=== PATIENT | male | born 1975 | race Caucasian/White ===

== ENCOUNTER 2021-01-25 23:46 | Emergency (ER) | payer MEDICAID ==
[~2021-01-25] VITALS: Ht 177.8 cm; Wt 87.3 kg
[2021-01-26] MEDS ORDERED: ketoconazole 2% cream 15gm TP ONE (01:55)
[2021-01-26] MEDS ORDERED: sulfamethoxazole/trimethoprim DS (800/160mg) tablet PO ONE (01:55)
[2021-01-26] MEDS ORDERED: ondansetron 4mg rapidly disintigrating tab PO ONE (01:55)
[2021-01-26] MEDS ORDERED: fluconazole 100mg tablet PO ONE (01:55)
[2021-01-26] MEDS ORDERED: CICL90CR3 TOP (03:46)
[2021-01-26] MEDS ORDERED: CEPH250T PO (03:46)
[2021-01-26 03:57] VITALS: BP 123/92
== END 2021-01-26 03:58 | disposition home or self-care (01) ==
LOC: ER 23:46
DX: L03.116 Cellulitis of left lower limb (principal); L03.115 Cellulitis of right lower limb; B35.3 Tinea pedis; Z88.6 Allergy status to analgesic agent; Z88.8 Allergy status to other drugs, medicaments and biological substances; Z79.2 Long term (current) use of antibiotics; Z79.899 Other long term (current) drug therapy
CPT/HCPCS: 93971; 99284

== ENCOUNTER 2021-07-20 00:01 | Emergency (ER) | payer MEDICAID ==
[~2021-07-20] VITALS: Ht 177.8 cm; Wt 90.1 kg
[~2021-07-20 00:01] MED LIST: CICL90CR3 TOP
[2021-07-20] MEDS ORDERED: cephalexin 500mg capsule PO ONE (00:40)
[2021-07-20] MEDS ORDERED: CEPH-585 PO (00:43)
[2021-07-20] MEDS ORDERED: CLOT15CR10 TOP (00:43)
[2021-07-20 02:01] VITALS: BP 130/80
== END 2021-07-20 02:03 | disposition home or self-care (01) ==
LOC: ER 00:01
DX: L03.115 Cellulitis of right lower limb (principal); I50.9 Heart failure, unspecified; Z88.6 Allergy status to analgesic agent; Z88.8 Allergy status to other drugs, medicaments and biological substances; Z79.2 Long term (current) use of antibiotics; Z79.899 Other long term (current) drug therapy
CPT/HCPCS: 93971; 99284

== ENCOUNTER 2021-07-29 17:01 | Emergency (ER) | payer MEDICAID ==
[~2021-07-29] VITALS: Ht 177.8 cm; Wt 90.9 kg
[~2021-07-29 17:01] MED LIST changes: +CEPH-585 PO; +CLOT15CR10 TOP
[2021-07-29] MEDS ORDERED: ondansetron 4mg rapidly disintigrating tab PO ONE (18:45)
[2021-07-29] MEDS ORDERED: CEPH250T PO (18:45)
[2021-07-29] MEDS ORDERED: morphine 4 MG/ML inj SYRINge IM ONE (18:45)
[2021-07-29] MEDS ORDERED: CLOT15CR10 TOP (18:45)
[2021-07-29 19:20] VITALS: BP 150/70
== END 2021-07-29 19:22 | disposition home or self-care (01) ==
LOC: ER 17:01
DX: L03.116 Cellulitis of left lower limb (principal); B35.3 Tinea pedis; I50.9 Heart failure, unspecified; Z88.6 Allergy status to analgesic agent; Z88.5 Allergy status to narcotic agent; Z79.899 Other long term (current) drug therapy
CPT/HCPCS: 96372; 99284; J2270

== ENCOUNTER 2022-07-04 18:28 | Emergency (ER) | payer MEDICAID ==
[~2022-07-04] VITALS: Ht 177.8 cm; Wt 102.0 kg
[2022-07-04 19:23] VITALS: BP 149/91
== END 2022-07-05 03:00 | disposition left against medical advice (07) ==
LOC: ER 18:29
DX: T14.8XXA Other injury of unspecified body region, initial encounter (principal); Z53.21 Procedure and treatment not carried out due to patient leaving prior to being seen by health care provider; W57.XXXA Bitten or stung by nonvenomous insect and other nonvenomous arthropods, initial encounter; Y93.89 Activity, other specified; Y92.89 Other specified places as the place of occurrence of the external cause; Y99.8 Other external cause status

== ENCOUNTER 2025-06-23 19:35 | Emergency (ER) | payer MEDICAID ==
[~2025-06-23] VITALS: Ht 177.8 cm; Wt 90.9 kg
[~2025-06-23 19:35] MED LIST changes: -CEPH-585 PO
[2025-06-23 19:48] VITALS: TEMP 96.8
--- NOTE | 2025-06-23 19:48 | ELECTROCARDIOGRAPH REPORT ---
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
--- NOTE | 2025-06-23 20:04 | RADIOLOGY REPORT ---
CLINICAL HISTORY: CP TECHNIQUE: Single view of the chest was obtained. COMPARISON: None FINDINGS: The heart size and pulmonary vasculature are normal. The lungs are clear. IMPRESSION: NO ACUTE CARDIOPULMONARY PROCESS.
[2025-06-23 20:23] LABS: CREATININE 1.14 MG/DL (0.60-1.10); PRO BRAIN NATRIURETIC PEPTIDE < 30 PG/ML (0-125); TOTAL CARBON DIOXIDE 27.9 MMOL/L (24-32); eCRCL 80 ML/MIN; eGFR 68 ML/MIN
[2025-06-23 20:25] LABS: MEAN PLATELET VOLUME 9.8 FL (7.4-10.4); RED CELL DISTRIBUTION WIDTH 14.4 % (11.5-14.5)
--- NOTE | 2025-06-23 22:40 | Physician Documentation ---
History of Present Illness ~ Chief Complaint: Chest Pain Stated Complaint: CHEST PAIN Time Seen by MD: 22:38 Primary Medical Doctor: NONE HPI Patient presents to the emergency room for evaluation of central chest pain that has been going on for the past week. No relieving or exacerbating factors. He does smoke and has family history significant for heart disease but denies any hypertension cholesterol , or diabetes. Endorses shortness of breath as well. Medication Reconciliation Allergies: Coded Allergies: acetaminophen (Verified Allergy, Severe, throat swelling, 06/23/25) oxycodone (Verified Allergy, Severe, throat swelling, 06/23/25) Scheduled Ciclopirox Olamine (Ciclopirox), 1 APPLIC TOP Q12H Clotrimazole (Clotrimazole), 1 APPLIC TOP Q8H Clotrimazole (Clotrimazole), 1 APPLIC TOP Q8H Past Medical History Past Medical History: Congestive Heart Failure, Cellulitis Past Surgical History: noncontributory Alcohol Use: None Drug Use: none Lives In: Home Review of Systems ROS All review of systems negative except as per HPI Physical Exam Vital Signs: Temperature: 96.8, Source: Temporal, Heart Rate: 94, Respiratory Rate: 15, BP: 142/98, Pulse Oximetry: 99, Weight: 90.900 Physical Exam General: Patient is awake, alert, oriented x4 in no acute distress Head: Normocephalic and atraumatic. Eyes: Conjunctival normal. EOMI. PERRL. ENT: Mucous membranes moist. Neck: Supple, trachea is midline. Chest: Clear to auscultation bilaterally without rales, rhonchi, or wheezes. There is no accessory muscle use or retractions. Cardiac: RRR without murmurs, gallops, or rubs. Extremities: Normal strength. Normal range of motion. No deformities or edema. No calf tenderness to palpation Progress Results/Orders Results/Orders Orders - ROOSEVELT VALERIO MD Chest,Single View (06/23/25 19:56) Monitor (06/23/25 19:47) Saline Lock (06/23/25 19:47) Oxygen (06/23/25 19:47) Hs Troponin I W Calculations (06/23/25 22:47) Cta Chest Pe (06/23/25 23:40) Completed Orders - ROOSEVELT VALERIO MD Chest,Single View (06/23/25 19:56) Cbc/Diff (06/23/25 19:47) BMP (06/23/25 19:47) PBNP (06/23/25 19:47) Electrocardiogram (06/23/25 19:47) Hs Troponin I W Calculations (06/23/25 19:47) Hs Troponin I W Calculations (06/23/25 21:47) D-Dimer (06/23/25 22:44) Cta Chest Pe (06/23/25 23:40) Iohexol 350mg/Ml 100ml (Omnipaque 350mg/ (06/23/25 23:04) Vital Signs 06/23/25 06/23/25 06/23/25 06/23/25 19:48 22:50 22:50 23:50 Temp 96.8 Pulse 94 91 89 Resp 15 16 16 B/P (MAP) 142/98 144/98 (113) 105/89 (94) Pulse Ox 99 97 99 O2 Flow Rate 0 0 06/24/25 01:12 Pulse 82 Resp 16 B/P (MAP) 138/81 (100) Pulse Ox 98 O2 Flow Rate 0 Laboratory Tests Test 06/23/25 19:55 06/23/25 21:54 White Blood Count 9.6 Red Blood Count 5.58 Hemoglobin 16.2 Hematocrit 49.6 Mean Corpuscular Volume 88.9 Mean Corpuscular Hemoglobin 29.0 Mean Corpuscular Hemoglobin Concent 32.6 L Red Cell Distribution Width 14.4 Platelet Count 184 Mean Platelet Volume 9.8 Neutrophils (%) (Auto) 61.4 Lymphocytes (%) (Auto) 26.8 Monocytes (%) (Auto) 8.1 Eosinophils (%) (Auto) 3.4 Basophils (%) (Auto) 0.3 Neutrophils # (Auto) 5.9 Lymphocytes # (Auto) 2.6 Monocytes # (Auto) 0.8 Eosinophils # (Auto) 0.3 Basophils # (Auto) 0.0 CBC Comment D-Dimer 1.07 H D-Dimer Comment Sodium Level 140 Potassium Level 4.7 Chloride Level 103 Carbon Dioxide Level 27.9 Anion Gap 9 Blood Urea Nitrogen 19 H Creatinine 1.14 H Estimated GFR/1.73 m2 68 BUN/Creatinine Ratio 16.7 Glucose Level 96 Calcium Level 8.9 Troponin I High Sensitivity 8 8 Pro-B-Type Natriuretic Peptide < 30 Albumin 3.8 Chemistry Comments Troponin I High Sens Percent Delta 0 Troponin I Hi Sens Absolute Change 0 EKG/XRAY/CT/US/VASC/MRI EKG : Additional Comment EKG interpreted by myself shows time of 1940, rate 94, sinus rhythm, normal axis, no ST changes Chest X-Ray : Additional Comments Exam: CHEST,SINGLE VIEW CLINICAL HISTORY: CP TECHNIQUE: Single view of the chest was obtained. COMPARISON: None FINDINGS: The heart size and pulmonary vasculature are normal. The lungs are clear. IMPRESSION: NO ACUTE CARDIOPULMONARY PROCESS. Medical Decision Making Findings Patient presents to the emergency room with chest pain times one-week. Pain is atypical in nature. Differentials include but are not limited to ACS, pulmonary embolism, acute aortic pathology, musculoskeletal pain therefore emergent labs and imaging indicated. Elevated D-dimer therefore CTA was performed which was reassuring. Unknown cause for patient's chest pain. Patient has low heart score of three in his considered low risk. ER precautions discussed. Departure Disposition: HOME / SELF CARE / HOMELESS Impression: Primary Impression: Chest pain Condition: Stable Discharge Instructions: Nonspecific Chest Pain, Adult Referrals: NO PRIMARY CARE PROVIDER (PCP) Signature Scribe Signature: No scribe Attestation: The note accurately reflects work and decisions made by me.Roosevelt Valerio MD 06/24/25 01:24 ROOSEVELT VALERIO MD Jun 23, 2025 22:40
--- NOTE | 2025-06-24 01:13 | RADIOLOGY REPORT ---
Procedure: CT CTA CHEST PE W/ IV CONTRAST Reason for study/Clinical History: cp, sob Comparison Study: None Exam Date: 06/23/2025 11:[address] Angio Chest with Contrast TECHNIQUE: Multiple axial CT images of chest was performed following intravenous contrast administrat ion and coronal reformatting was performed. 3-D/MIP images were obtained. Radiation Dose : Dose-length product is 727 mGy*cm FINDINGS: PULMONARY ARTERIES: Limited evaluation due to motion artifact and contrast bolus/timing. Evaluation of segmental and subsegmental branches are incomplete due to this limitation. No acute pulmonary emboli within the main or lobar branches. LUNGS AND PLEURA: Right upper lobe calcified granuloma. No focal consolidations. No definite pulmonary edema. No mass o r nodule. No pleural effusion. No pneumothorax. MEDIASTINUM: No lymphadenopathy or mass. The heart shows no acute findings.The aorta shows no acute findings. The pulmonary trunk, and branches of the vessels in the mediastinum are within normal limits. SUPRACLAVICULAR AND AXILLARY: No abnormalities seen in these regions.No mass or significant lymphadenopathy. UPPER ABDOMEN: Tiny hiatal hernia . BONES AND SOFT TISSUES: The ribs are unremarkable.The visualized spine shows no significant acute findings.No focal bony mass lesions noted.The subcutaneous soft tissues are unremarkable. IMPRESSION: Limited evaluation due to motion artifact and contrast bolus/timing. Evaluation of segmental and subsegmental branches are incomplete due to this limitation. No acute pul monary emboli within the main or lobar branches. No focal consolidations.
[2025-06-24 01:36] VITALS: BP 127/77; PULSE 78; RESP 16; O2SAT 98
== END 2025-06-24 01:47 | disposition home or self-care (01) ==
LOC: ER 19:35
DX: R07.89 Other chest pain (principal); I50.9 Heart failure, unspecified; Z88.5 Allergy status to narcotic agent; Z79.899 Other long term (current) drug therapy
CPT/HCPCS: 36415; 71045; 71275; 80048; 83880; 84484; 85025; 85379; 93005; 99285; Q9967